=== PATIENT | female | born 1955 | race Caucasian/White ===

== ENCOUNTER 2017-10-03 08:18 | Observation (INO) | payer BC, OTHER ==
[~2017-10-03] VITALS: Ht 160 cm; Wt 94.1 kg
[2017-10-03] VITALS (29 sets, daily range): BP systolic 76–161; BP diastolic 37–136
[~2017-10-03 08:18] MED LIST: DORZ10DR7; LISI40TA4 PO; PANT-47 PO; clindamycin-Cleocin 900mg/D5W 50 ML IV ONE; famotidine 20mg tablet PO ONE; gentamicin inj 275 MG in normal saline 100ml IV soln 93.125 ML IV ONE
[2017-10-03] MEDS: ringers solution, lacted 1,000 ML IV SCH ×2 (09:25→18:04)
[2017-10-03 09:30] LABS: BASOPHILS # (AUTO) 0.1 X10'3 (0-0.2); BASOPHILS % (AUTO) 0.7 % (0-1); EOSINOPHILS # (AUTO) 0.2 X10'3 (0-0.9); EOSINOPHILS % (AUTO) 3.2 % (0-6); HEMATOCRIT 40.8 % (35.0-45.0); LYMPHOCYTES # (AUTO) 1.7 X10'3 (1.1-4.8); LYMPHOCYTES % (AUTO) 22.5 % (21-51); MEAN CORPUSCULAR HEMOGLOBIN 29.8 PG (27.0-31.0); MEAN CORPUSCULAR HGB CONC 34.2 % (33.0-36.5); MEAN CORPUSCULAR VOLUME 87.1 FL (78-98); MEAN PLATELET VOLUME 10.9 FL (7.4-10.4); MONOCYTES # (AUTO) 0.7 X10'3 (0-0.9); MONOCYTES % (AUTO) 9.5 % (2-12); NEUTROPHILS # (AUTO) 4.8 X10'3 (1.8-7.7); NEUTROPHILS % (AUTO) 64.1 % (42-75); PLATELET COUNT 163 X10'3 (140-440); RED BLOOD COUNT 4.69 X10'6 (4.20-5.60); RED CELL DISTRIBUTION WIDTH 14.6 % (11.5-14.5); WHITE BLOOD COUNT 7.6 X10'3 (4.5-11.0)
[2017-10-03 09:44] LABS: ALANINE AMINOTRANSFERASE 24 U/L (12-78); ALBUMIN 3.2 G/DL (3.4-5.0); ALBUMIN/GLOBULIN RATIO 0.8 (1.1-1.5); ALKALINE PHOSPHATASE 64 IU/L (46-116); ANION GAP 8 (8-16); ASPARTATE AMINO TRANSFERASE 11 U/L (10-37); BILIRUBIN,TOTAL 0.4 MG/DL (0.1-1.0); BLOOD UREA NITROGEN 13 MG/DL (7-18); BUN/CREATININE RATIO 14.9 (6.6-38.0); CHLORIDE 109 MMOL/L (99-107); CREATININE 0.87 MG/DL (0.40-0.90); GLUCOSE 97 MG/DL (70-104); SODIUM 144 MMOL/L (135-145); TOTAL CARBON DIOXIDE 27.5 MMOL/L (24-32); TOTAL PROTEIN 7.2 G/DL (6.4-8.2); eGFR 66 ML/MIN
[2017-10-03 09:45] LABS: LARGE PLATELETS FEW; PLATELET ESTIMATE NORMAL
[2017-10-03] MEDS ORDERED: ceFAZolin 1000mg inj ONE (10:48)
[2017-10-03] MEDS ORDERED: BUPIVAcaine/PF 2.5 mg/ml (0.25%) 30ml vial ONE (10:48)
[2017-10-03] MEDS ORDERED: labetalol 5mg/ml 20ml inj. IV ONE (10:56)
[2017-10-03] MEDS ORDERED: sevoflurane 250ml liquid IH ONE (10:56)
[2017-10-03] MEDS ORDERED: dexamethasone sod phosphate 4mg/ml inj. ONE (10:56)
[2017-10-03] MEDS ORDERED: propofol inj 20 ML IV ONE (11:02)
[2017-10-03] MEDS ORDERED: LIDOcaine 2% (20mg/ml) 5ml vial ONE (11:02)
[2017-10-03] MEDS ORDERED: fentaNYL/PF 50MCG/1 ML 2ML syringe ONE (11:02)
[2017-10-03] MEDS ORDERED: MIDAZolam 5mg/5ml vial ONE (11:02)
[2017-10-03] MEDS ORDERED: rocuronium 10mg/ml inj IV ONE (11:02)
[2017-10-03] MEDS ORDERED: ondansetron/PF 4mg/2ml inj ONE (11:03)
[2017-10-03] MEDS ORDERED: neostigmine methylsulfate 1 MG/ML 10ml vial ONE ×2 (11:03→12:00)
[2017-10-03] MEDS ORDERED: succinylcholine 20mg/ml inj IV ONE (11:04)
[2017-10-03] MEDS ORDERED: glycopyrrolate 0.2mg/ml inj ONE (11:18)
[2017-10-03] MEDS ORDERED: morphine 10mg/ml inj. ONE (11:19)
[2017-10-03] MEDS ORDERED: ringers solution, lacted 1,000 ML IV SCH ×2 (11:33→12:17)
[2017-10-03] MEDS ORDERED: hydrALAZINE 20mg/ml inj. IV PRN (11:35)
[2017-10-03] MEDS ORDERED: MORPHINE 2MG in 2ml NS syringe IV PRN (11:35)
[2017-10-03] MEDS ORDERED: ondansetron/PF 4mg/2ml inj IV PRN ×3 (11:35→14:35)
[2017-10-03] MEDS ORDERED: enalaprilat dihydrate 2.5mg/2ml vial IV PRN (11:35)
[2017-10-03] MEDS ORDERED: fentaNYL/PF 50MCG/1 ML 2ML syringe IV PRN (11:35)
[2017-10-03] MEDS: fentaNYL/PF 50MCG/1 ML 2ML syringe IV PRN ×2 (13:15→18:00)
[2017-10-03] MEDS ORDERED: HYDROcodone/acetaminophen 10/325mg tab PO PRN ×2 (14:35)
[2017-10-03] MEDS: normal saline 1000ml 1,000 ML IV SCH (18:26)
[2017-10-04] MEDS: normal saline 1000ml 1,000 ML IV SCH ×2 (00:35→04:00)
[2017-10-04 02:00] VITALS: BP 132/69
[2017-10-04 05:43] LABS: BASOPHILS % (AUTO) 0.1 % (0-1); EOSINOPHILS % (AUTO) 0 % (0-6); HEMATOCRIT 40.9 % (35.0-45.0); HEMOGLOBIN 13.8 g/dl (12.0-16.0); LYMPHOCYTES # (AUTO) 0.8 X10'3 (1.1-4.8); LYMPHOCYTES % (AUTO) 5.3 % (21-51); MEAN CORPUSCULAR HEMOGLOBIN 29.8 PG (27.0-31.0); MEAN CORPUSCULAR HGB CONC 33.8 % (33.0-36.5); MEAN CORPUSCULAR VOLUME 88.1 FL (78-98); MEAN PLATELET VOLUME 12.1 FL (7.4-10.4); MONOCYTES # (AUTO) 0.6 X10'3 (0-0.9); MONOCYTES % (AUTO) 4.2 % (2-12); NEUTROPHILS % (AUTO) 90.4 % (42-75); PLATELET COUNT 163 X10'3 (140-440); RED BLOOD COUNT 4.64 X10'6 (4.20-5.60); RED CELL DISTRIBUTION WIDTH 14.6 % (11.5-14.5); WHITE BLOOD COUNT 14.3 X10'3 (4.5-11.0)
[2017-10-04 05:57] LABS: ALBUMIN 2.9 G/DL (3.4-5.0); ANION GAP 9 (8-16); BLOOD UREA NITROGEN 11 MG/DL (7-18); BUN/CREATININE RATIO 12.1 (6.6-38.0); CALCIUM 8.9 MG/DL (8.5-10.1); CHLORIDE 109 MMOL/L (99-107); CREATININE 0.91 MG/DL (0.40-0.90); GLUCOSE 115 MG/DL (70-104); POTASSIUM 4.8 MMOL/L (3.5-5.1); SODIUM 144 MMOL/L (135-145); TOTAL CARBON DIOXIDE 26.3 MMOL/L (24-32); eGFR 62 ML/MIN
[2017-10-04 06:00] VITALS: BP 145/77
[2017-10-04] MEDS ORDERED: pantoprazole 40mg Tablet.DR PO SCH (07:30)
[2017-10-04] MEDS ORDERED: lisinopril 10 MG tablet PO SCH (08:00)
[2017-10-04] MEDS ORDERED: HYDR-565 PO (09:27)
== END 2017-10-04 11:42 | disposition home or self-care (01) ==
LOC: PAS 08:18 → PCU 3S 14:32
PROVIDERS: ADMIT Surgery; ATTEND Surgery
DX: K80.10 Calculus of gallbladder with chronic cholecystitis without obstruction (principal); K21.9 Gastro-esophageal reflux disease without esophagitis; I10 Essential (primary) hypertension; H40.9 Unspecified glaucoma; F41.9 Anxiety disorder, unspecified; F32.9 Major depressive disorder, single episode, unspecified; Z80.3 Family history of malignant neoplasm of breast; Z80.41 Family history of malignant neoplasm of ovary; Z90.710 Acquired absence of both cervix and uterus
CPT/HCPCS: 36415; 47562; 80048; 80053; 85025; 93005; 94002; 96365; 96366; 96375; G0378; J0330; J0690; J1100; J1580; J2001; J2250; J2270; J2405; J2704; J2710; J3010; J3490; J7030; J7120; A7000